=== PATIENT | female | born 1945 | race Caucasian/White ===

== ENCOUNTER 2018-10-17 20:14 | Emergency (ER) | payer MEDICARE, BC ==
[~2018-10-17] VITALS: Ht 152.4 cm; Wt 75.1 kg
[~2018-10-17 20:14] MED LIST: ACET500T98 PO; GUAI5SYR2 PO; IBUP-1982 PO; PHEN30SP4 NASAL
[2018-10-17 21:06] VITALS: Ht 152.4 cm; Wt 75.1 kg
[2018-10-17] MEDS ORDERED: morphine 4 MG/ML VIAL IV ONE (22:57)
[2018-10-17] MEDS ORDERED: ONDANSETRON 4 MG INJ IV ONE (22:57)
--- NOTE | 2018-10-17 23:07 | ERD ---
ER Documentation Chief Complaint Chief Complaint RIGHT WRIST DEFORMITY, ELBOW PAIN, HEAD INJURY S/P FALL; HYPERTENSIVE HPI This is a 72-year-old female with a past medical history of hypertension, hyperlipidemia, diabetes who is presenting after a fall down 3 or 4 steps. She missed a step this afternoon and fell forward. She fell on an outstretched left hand and did attempt to break her fall. She did sustain a deformity to the right wrist and forearm with progressive worsening swelling. She is able to move all of her fingers and her sensation is intact. Her pulses are also intact. Her hand is not cool or pale or cyanotic. She is able to move the elbow without issue. She has difficulty ranging the wrist secondary to pain. The patient does also endorse hitting her head when she fell. She sustained an abrasion to the right forehead. She did not lose consciousness. She has very mild headache around the right forehead at the site of the injury. She does not endorse any other headache or head trauma. She does not have any vision changes. She does not endorse any neck or back pain. She does not endorse any cardiothoracic or abdominal trauma. She does not endorse any other extremity in jury. She is ambulatory without issue. She has no saddle anesthesia. She has no focal deficits. She has no weakness or numbness or tingling to the face or extremities. The patient denies feeling sick recently. The patient denies fever or chills. The patient denies lightheadedness or dizziness. The patient has had no chest pain or trouble breathing. The patient denies nausea or vomiting. The patient denies abdominal pain. The patient denies changes to bowel movements or urination. ROS All systems reviewed and are negative except as per history of present illness. Medications Home Meds Active Scripts Phenylephrine Hcl (NASAL SPRAY) 30 Ml [place], 2 SPRAYS NASAL Q6 PRN for NASAL CONGESTION, #1 BOTTLE 0 Refills only use for 3 days max Prov:RORY NINO PA-C 08/18/15 Guaifenesin-Dextromethorphan* (Robitussin* DM) 100MG/10MG/5ML Syrup, 5 ML PO Q6H PRN for COUGH, #120 ML 0 Refills Prov:RORY NINO PA-C 08/18/15 Ibuprofen* (Ibuprofen*) 200 Mg Capsule, 200 MG PO Q6, #30 CAP 0 Refills Prov:RORY NINO PA-C 08/18/15 Acetaminophen (Tylenol) 500 Mg Tab, 500 MG PO Q6, #30 TAB 0 Refills Prov:DIOGENES NINOBRANDON CONLEY 08/18/15 Allergies Allergies: Coded Allergies: No Known Allergy (Unverified , 08/18/15) PMhx/Soc Medical and Surgical Hx: pt denies Surgical Hx History of Surgery: No Anesthesia Reaction: No Hx Neurological Disorder: No Hx Respiratory Disorders: No Hx Cardiac Disorders: Yes (Hypertension, hyperlipidemia, diabetes) Hx Psychiatric Problems: No Hx Miscellaneous Medical Probl: No Hx Alcohol Use: No Hx Substance Use: No Hx Tobacco Use: No Smoking Status: Never smoker FmHx Family History: diabetes Physical Exam Vitals Vital Signs Date Temp Pulse Resp B/P (MAP) Pulse Ox O2 O2 Flow FiO2 Time Delivery Rate 10/17/18 89 19 218/90 98 Room Air 23:10 (132) 10/17/18 99.6 92 20 217/153 97 21:06 (174) Physical Exam Const: No apparent distress, well-developed, well-nourished Head: Normocephalic. Small right forehead abrasion. No grant sign. Eyes: Normal Conjunctiva. Extraocular movements intact. Pupils equal, round and reactive to light. No raccoon eyes. ENT: Normal External Ears, Nose and Mouth. Neck: No midline tenderness or step-offs or deformities. Full range of motion. No meningismus. Resp: Clear to auscultation bilaterally, No wheezes, rales or rhonchi Cardio: Regular rate and rhythm. No murmurs, rubs or gallops Abd: Soft, non tender, non distended. Normal bowel sounds Skin: No petechiae or rashes Back: No midline tenderness or step-offs or deformities. No CVA tenderness Ext: No cyanosis. RUE - Limited range of motion to the right wrist secondary to pain, 1+ pitting edema along the right forearm, radial pulse intact, no obvious deformity to the hand. Neur: Awake and alert, oriented 4. Cranial nerves intact. No facial droop. Normal strength, sensation and coordination. Psych: Normal Mood and Affect Results 24 hrs Current Medications Medications Dose Sig/Abena Start Time Status Last (Trade) Ordered Route PRN Stop Time Admin Dose Reason Admin Morphine 4 mg ONCE ONCE 10/17/18 DC 10/17/18 Sulfate IV 22:57 23:03 (morphine) 10/17/18 22:58 Ondansetron 4 mg ONCE ONCE 10/17/18 DC 10/17/18 HCl (Zofran IV 22:57 23:03 Inj) 10/17/18 22:58 Diphtheria/ 0.5 ml ONCE ONCE 10/17/18 DC 10/18/18 Tetanus/Acell IM* 23:30 00:00 Pertussis 10/17/18 23:31 (Adacel) Bacitracin 1 applic ONCE ONCE 10/17/18 DC 10/18/18 (Bacitracin TOP 23:30 00:50 Oint (Ud)) 10/17/18 23:31 Procedures/MDM MDM The patient's presentation warrants further investigation. Previous medical records, if available, were reviewed. IMAGING Imaging and Radiology interpretation reviewed. CT Head FINDINGS: BRAIN PARENCHYMA: Negative for evidence of acute intraparenchymal hemorrhage, significant mass effect or midline shift. Pichardo-white matter differentiation is maintained. Mild diffuse cerebral tissue loss. VENTRICLES AND EXTRA-AXIAL SPACES: Prominence of the ventricles proportionate to the sulci in keeping with cerebral tissue loss. Midline is central. Basal cisterns are normal. No abnormal extra-axial fluid collections are identified. Negative for evidence of acute subarachnoid or extra-axial hemorrhage. VASCULATURE: Negative for significant intracranial atherosclerosis. VISUALIZED PARANASAL SINUSES AND MASTOID AIR CELLS: Visualized paranasal sinuses: Near complete opacification of the right maxillary sinus with mucosal thickening. Mastoid air cells: Mild right mastoid effusion. Left mastoid air cells are clear. BONES: No focal abnormality. SCALP: No significant abnormality. Additional comment: Bilateral cataract surgery. IMPRESSION: Unremarkable CT brain for age. Negative for evidence of acute intracranial injury. Negative for evidence of acute intracranial hemorrhage or mass effect. Electronically viewed and signed by Omid Ny Physician on 10/18/2018 00:27 XR R Wrist FINDINGS: There is an acute comminuted intra-articular fracture of the distal radius that involves the radiocarpal joint and distal radioulnar joint. There is mild angulation with neutral alignment of the distal radial articular surface. There is a mildly displaced transverse fracture of the ulnar styloid. Alignment of the distal radioulnar joint and wrist is anatomic. There is periarticular soft tissue swelling. IMPRESSION: Acute comminuted intra-articular fracture of the distal radius and acute fracture of the ulnar styloid as described. Electronically viewed and signed by Physician Pinky on 10/18/2018 00:31 XR R Forearm FINDINGS: There is a comminuted intra-articular fracture of the distal radius that involves the radiocarpal joint and distal radioulnar joint. No other acute fractures are identified in the more proximal shafts of the radius or ulna. Alignment of the wrist is anatomic. Elbow is unremarkable. IMPRESSION: Acute comminuted intra-articular fracture of the distal radius. Recommend further evaluation with x-rays of the right wrist. No additional fractures are identified in the more proximal shafts of the radius or ulna. Electronically viewed and signed by Physician Pinky on 10/18/2018 00:29 TREATMENT/DISPOSITION The patient presents after a fall with a minor head injury and deformity to the right forearm and wrist. The patient was evaluated fully without evidence of emergent posttraumatic pathology. The patient's CT imaging of the head is unremarkable. The patient has no focal deficits. I've low suspicion for intracranial pathology. I have low suspicion for cerebral ischemia or intracranial hemorrhage. The patient has no cervical spine tenderness. He can move his neck in all directions without any pain. As stated above, he does not have any focal deficits. He is not altered or intoxicated. He does not have any distracting injuries. The patient's cervical spine was clinically cleared using the Nexus C-spine rule. The patient does not have any saddle anesthesia. He has not been incontinent of urine or stool. He has not had any retention of urine or stool. I have low suspicion for spinal cord injury. The patient did have significant swelling to the right forearm and wrist, concerning for a fracture. The x-ray revealed Acute comminuted intra-articular fracture of the distal radius and acute fracture of the ulnar styloid. The patient was splinted under my direct supervision. The patient will require orthopedic evaluation in an outpatient setting in the next 5-7 days. I do not feel the patient requires inpatient management at this time. There is no evidence for cardiothoracic or abdominal injury. The patient was given a tetanus shot given the right forehead abrasion that she sustained. She does not know when her last tetanus shot was. Bacitracin was also applied to the abrasion. The patient was also treated with morphine and Zofran for symptom control. The patient's blood pressure was elevated. She does have a history of hypertension. I do not suspect this to be related to her mechanical fall this afternoon. After the patient's pain was controlled, the patient's blood pressure improved. DISCHARGE Upon reevaluation of the patient, symptoms have improved. No emergent diagnoses were identified. At this time, I feel that the patient stable for discharge. The patient was instructed to follow-up with a primary care physician in 1-3 days. The patient understands the need to follow-up with an orthopedic physician within the next week. The patient will be given strict precautions with which to return to the emergency department. Prescriptions: [place] The patient's blood pressure was elevated at greater than 120/80 while in the emergency department. The patient was otherwise stable with no evidence of hypertensive urgency or emergency. The patient does not require admission for blood pressure control. I have discussed with the patient the risks of hypertension. I have instructed the patient to return to the ER for any new or worsening symptoms including chest pain, shortness of breath, headache, blurred vision, confusion, nausea, vomiting or LOC. I have advised the patient to follow up with the primary care physician for outpatient monitoring and treatment for hypertension in 1-3 days. Disclaimer: Inadvertent spelling and grammatical errors are likely due to EHR/dictation software use and do not reflect on the overall quality of patient care. Note that the electronic time recorded on this note does not necessarily reflect the actual time of the patient encounter. Departure Diagnosis: Primary Impression: Closed fracture of right wrist Encounter type: initial encounter Qualified Codes: S62.101A - Fracture of unspecified carpal bone, right wrist, initial encounter for closed fracture Additional Impressions: Fall at home Encounter type: initial encounter Qualified Codes: W19.XXXA - Unspecified fall, initial encounter; Y92.009 - Unspecified place in unspecified non- institutional (private) residence as the place of occurrence of the external cause Head trauma Encounter type: initial encounter Qualified Codes: S09.90XA - Unspecified injury of head, initial encounter Forehead abrasion Encounter type: initial encounter Qualified Codes: S00.81XA - Abrasion of other part of head, initial encounter Right wrist pain Condition: Stable Patient Instructions: Fall Prevention, Fracture, Wrist [General], Head Trauma (Traumatic Brain Injury) Additional Instructions: Thank you for for coming to [facility] for your care today. Please ask your nurse or provider if you have questions about your care today and do not leave until all your questions have been answered. Please use any medications given as directed and follow-up with your doctor (or the doctor you were referred to) in the next 1-3 days. If you do not have a primary care doctor you may follow up at the community hospital or [facility] clinic (listed below). You may also use motrin and tylenol as needed for fever and/or pain unless instructed otherwise by your provider or nurse. Indications for more urgent follow-up have been discussed, but you may return to the Emergency Department at ANY time for any worrisome or worsening symptoms. If you have abdominal pain, please know that no test or exam you received is pe rfect and you should follow up within 8 hours for continued pain. If you had any imaging studies today, such as an X-Ray or CT Scan, these studies will be reviewed later by a radiologist. You will be called if there are important findings that were not identified today, so make sure the contact information you provided at registration is correct. If you received any narcotic pain control medicine today, such as Vicodin, Morphine or Dilaudid, your coordination and judgment may be affected for a number of hours. Please do not drive or operate heavy machinery, and you may want someone to assist you at home. If you were given a prescription for narcotic medication, be aware that it is very addictive- use sparingly and only if necessary. PLEASE SEEK FURTHER EVALUATION AND MANAGEMENT AT YOUR DOCTORS OFFICE WITHIN THE NEXT 1-3 DAYS. IT IS YOUR RESPONSIBILITY TO MAKE AN APPOINTMENT FOR FOLOW-UP CARE. IF YOU HAVE A PRIMARY DOCTOR, PLEASE CALL THEIR OFFICE TO SCHEDULE AN APPOINTMENT FOR FOLLOW UP. IF YOU DO NOT HAVE A PRIMARY DOCTOR YOU CAN CALL OUR PHYSICIAN REFERRAL HOTLINE AT IF YOU CAN NOT AFFORD TO SEE A PHYSICIAN YOU CAN CHOSE FROM THE FOLLOWING [facility] CLINICS: [facility] [address] [facility] [address] [facility]. [facility] [address] [facility] [address] [facility] [address] [facility]. [facility] [address] AHSAN HOOD MD Oct 17, 2018 22:58
[2018-10-17] MEDS ORDERED: DIPHTH/TET/ACEL PERTUSS (ADULT) 0.5 ML VIAL IM* ONE (23:30)
[2018-10-17] MEDS ORDERED: BACITRACIN 0.9 GM OINT TOP ONE (23:30)
[2018-10-18] MEDS ORDERED: oxyCODONE 5 MG TAB PO ONE (01:00)
[2018-10-18] MEDS ORDERED: IBUP-1542 PO (01:01)
[2018-10-18] MEDS ORDERED: HYDR-4011 PO (01:01)
[2018-10-18] MEDS ORDERED: MEMA5TAB14 PO (01:32)
[2018-10-18] MEDS ORDERED: FURO20TA3 PO (01:32)
[2018-10-18] MEDS ORDERED: EZET10TA32 PO (01:32)
[2018-10-18] MEDS ORDERED: MELO15TA30 PO (01:32)
[2018-10-18] MEDS ORDERED: GABA300C16 PO (01:32)
[2018-10-18] MEDS ORDERED: CARV12.579 PO (01:32)
[2018-10-18] MEDS ORDERED: DONE10TA7 PO (01:32)
[2018-10-18] MEDS ORDERED: SITA1TAB PO (01:32)
[2018-10-18] MEDS ORDERED: OMEG-101 PO (01:32)
[2018-10-18] MEDS ORDERED: LOSA1TAB25 PO (01:32)
[2018-10-18] MEDS ORDERED: ATOR40TA68 PO (01:32)
[2018-10-18 01:41] VITALS: BP 142/80; PULSE 73; RESP 16
== END 2018-10-18 01:41 | disposition home or self-care (01) ==
LOC: E/R 20:14
DX: S62.101A Fracture of unspecified carpal bone, right wrist, initial encounter for closed fracture (principal); I10 Essential (primary) hypertension; E11.9 Type 2 diabetes mellitus without complications; S00.81XA Abrasion of other part of head, initial encounter; R51 Headache; W10.9XXA Fall (on) (from) unspecified stairs and steps, initial encounter; Y92.009 Unspecified place in unspecified non-institutional (private) residence as the place of occurrence of the external cause; Z23 Encounter for immunization
CPT/HCPCS: 29105; 70450; 73090; 73110; 90471; 90715; 96374; 96375; 99285; J2270; J2405